=== PATIENT | female | born 1975 | race Caucasian/White ===

== ENCOUNTER → 2021-08-30 14:56 | Outpatient (CLI) | payer OTHER, SELFPAY ==
--- NOTE | ~2021-08-30 | MM_ITS ---
EXAMINATION: MM screening ralph BI w satish HISTORY: Screening TECHNIQUE: Craniocaudal and mediolateral oblique 3-D tomosynthesis images were obtained and synthetic 2-D images were generated. CAD analysis was submitted and interpreted. COMPARISON: Comparison to multiple prior studies sequentially, with oldest reviewed study dated 12/22. BREAST PARENCHYMAL COMPOSITION: The breasts are extremely dense, which lowers the sensitivity of mamm ography FINDINGS: There is no evidence of suspicious mass, calcification, or architectural distortion to sugg est malignancy in either breast. There has been no suspicious interval change. IMPRESSION: 1. No mammographic evidence of malignancy. 2. Recommend routine screening mammography in one year. BI-RADS Category 1: Negative Reviewed, dictated and finalized at location B. ATIENT CODER
== END ==
PROVIDERS: PCP Family Medicine; Visit Provider Family Medicine
DX: Z12.31 Encounter for screening mammogram for malignant neoplasm of breast (principal)
CPT/HCPCS: 77063; 77067

== ENCOUNTER → 2023-10-04 12:17 | Outpatient (CLI) | payer OTHER, SELFPAY ==
--- NOTE | ~2023-10-04 | MM_ITS ---
EXAMINATION: MM screening ralph BI w satish HISTORY: Screening TECHNIQUE: Craniocaudal and mediolateral oblique 3-D tomosynthesis images were obtained and synthetic 2-D images were generated. CAD analysis was submitted and interpreted. COMPARISON: Comparison to multiple prior studies sequentially, with oldest reviewed study dated 01/11. BREAST PARENCHYMAL COMPOSITION: Dense: The breasts are heterogeneously dense, which may obscure small masses FINDINGS: There is a new focal asymmetry in the left breast medially on CC view. The right breast is stable without evidence for malignancy. IMPRESSION: 1. New focal right breast asymmetry medially in the left breast. 2. Additional mammographic views and possible breast ultrasound are recommended. BI-RADS CATEGORY 0 - INCOMPLETE STUDY, NEED ADDITIONAL IMAGING EVALUATION. Reviewed, dictated and finalized at location A. RSITY SPECIALIST IMPRESSION: 1. New focal right breast asymmetry medially in the left breast. 2. Additional mammographic views and possible breast ultrasound are recommended . BI-RADS CATEGORY 0 - INCOMPLETE STUDY, NEED ADDITIONAL IMAGING EVALUATION.
== END ==
DX: Z12.31 Encounter for screening mammogram for malignant neoplasm of breast (principal); R92.8 Other abnormal and inconclusive findings on diagnostic imaging of breast
CPT/HCPCS: 77063; 77067

== ENCOUNTER 2023-11-08 08:46 | Outpatient (CLI) | payer OTHER, SELFPAY ==
--- NOTE | ~2023-11-08 | MMUS_ITS ---
EXAMINATION: MM diagnostic ralph LT w satish, US breast LT complete HISTORY: New focal left breast mammographic asymmetry reported on October 04, 2023 screening mammogr am examination TECHNIQUE: Additional 3-D tomosynthesis images of the left breast were performed and synthetic 2-D im ages were generated. CAD analysis was submitted and interpreted. High resolution complete left breast ultrasound examination including all 4 quadrants and subareolar area was performed. COMPARISON: October 04, 2023, August 30, 2021 bilateral screening mammogram examinations FINDINGS: MAMMOGRAPHIC FINDINGS: There is dense stroma in the anterior breast including subareolar area, which may obscure masses. Foc al mammographic mass, architectural distortion, malignant calcification, skin thickening and retracti on are not identified. ULTRASOUND: Left subareolar area: 3.8 x 7.9 x 5.6 mm sonolucency with through transmission posterior enhancement, no internal vascularity, consistent with simple cyst Left subareolar area: Parallel circumscribed hypoechoic 2.4 x 7 x 5.8 mm solid lesion with marginal i ncreased vascularity. Ultrasound-guided biopsy is recommended. IMPRESSION: 1. Indeterminate solid subareolar 7 mm mass in left subareolar area with increased marginal vasculari ty 2. Ultrasound-guided biopsy of this subareolar 7 mm mass is recommended BI-RADS category 4, suspicious findings. Dr. Jones telephoned the report and ultrasound guided biopsy recommendation on 11/08/[address] Castañeda. Reviewed, dictated and finalized at location A. IMPRESSION: 1. Indeterminate solid subareolar 7 mm mass in left subareolar area with increa sed marginal vascularity 2. Ultrasound-guided biopsy of this subareolar 7 mm mass is recommended BI-RADS category 4, suspicious findings. Dr. Jones telephoned the report and ultrasound guided biopsy recommendation on at [address] Castañeda.
== END 2023-11-08 08:47 ==
LOC: MICIMG 08:47
DX: R92.8 Other abnormal and inconclusive findings on diagnostic imaging of breast (principal)
CPT/HCPCS: 76641; 77061; 77065; G0279